=== PATIENT | female | born 1945 | race Caucasian/White ===

== ENCOUNTER 2018-12-30 07:12 | Day surgery (SDC) | payer OTHER ==
--- NOTE | 2018-12-29 07:35 | EKG ---
Test Date: 2018-12-28 Test Time: 15:35:47 [employer] Pharmacy Technician: DIAMOND MEASUREMENT RESULTS: Intervals: Rate: 60 ND: 182 QRSD: 82 QT: 396 QTc: 396 Randolph: P: 44 ND: 182 QRS: 4 T: 31 INTERPRETIVE STATEMENTS: Normal sinus rhythm Normal ECG Compared to ECG 03/03/1999 12:06:00 No significant changes Electronically Signed On 12-29-18 07:34:57 CDT by Cheo Herrera
[2018-12-30] MEDS ORDERED: Ringers Lactate 1,000 ML IV ONE (08:03)
[2018-12-30] MEDS ORDERED: FENTANYL CITR 250 MCG/5 ML ONE (09:02)
[2018-12-30] MEDS ORDERED: dexAMETHasone 10 MG/ML VIAL ONE (09:02)
[2018-12-30] MEDS ORDERED: MIDAZOLAM HCL 2 MG/2 ML INJ ONE (09:02)
[2018-12-30] MEDS ORDERED: ROCURONIUM 50 MG/5 ML VIAL IV ONE (09:02)
[2018-12-30] MEDS ORDERED: PROPOFOL 200 MG/20 ML VIAL IV ONE (09:02)
[2018-12-30] MEDS ORDERED: LIDOCAINE 2% MPF 5 ML VIAL ONE (09:02)
[2018-12-30] MEDS: LIDOCAINE 1% W/EPI 1:100,000 MDV 20 ML VIAL ONE ×2 (09:25→09:49)
[2018-12-30] MEDS ORDERED: GLYCOPYRROLATE 0.2 MG/ML SYR ONE (09:45)
[2018-12-30] MEDS ORDERED: KETOROLAC 30 MG/ML INJ ONE (10:32)
--- NOTE | 2018-12-30 10:37 | P.BOP ---
Preoperative diagnosis: L parotid mass, AUS Postoperative diagnosis: same Primary procedure: partial parotidectomy without nerve dissection Diamond Merchant: KAYLAN CARR Estimated blood loss: <10ml Specimen: left parotid mass, suture and marking pen on deep aspect Anesthesia: General Complications: None Drain(s): ALIZA drain Fluids & blood products: crystalloid 600ml Transferred to: Recovery Room Condition: Good
[2018-12-30] MEDS ORDERED: NALOXONE HCL 2 MG/2 ML VIAL ONE (10:44)
[2018-12-30] MEDS ORDERED: NALOXONE 0.4 MG/ML VIAL ONE (10:46)
[2018-12-30] MEDS ORDERED: TRAMADOL HCL 50 MG TAB ONE (12:18)
[2018-12-30] MEDS ORDERED: ONDANSETRON 4 MG/2 ML VIAL ONE (12:19)
[2018-12-30] MEDS ORDERED: ONDANSETRON 4 MG/2 ML VIAL IV ONE (12:20)
[2018-12-30] MEDS ORDERED: TRAMADOL HCL 50 MG TAB PO ONE (12:25)
[2018-12-30 13:44] VITALS: O2SAT 100
[2018-12-30 13:53] VITALS: BP 151/62; TEMP 98.6
--- NOTE | 2018-12-31 01:46 | OP ---
Date of Procedure: 12/30/2018 Surgeon: Mya Armenta MD Visual Effects Artist: Sally Stewart. Preoperative Diagnosis: Left parotid lesion of uncertain behavior. Postoperative Diagnosis: Left parotid lesion of uncertain behavior. Procedure: Partial left parotidectomy without facial nerve dissection. Indication For Procedure: Ms. Jiménez is a 73-year-old who presented with a left parotid lesion that by palpation was approximately 1.5 cm. She had undergone a CT and an ultrasound, findings confirming a parotid lesion. A fine- needle aspiration biopsy was performed and showed a lesion with atypia of uncertain significance. The risks, benefits, and alternatives to the procedure were discussed with the patient who agreed to proceed. Description Of Procedure: The patient was brought to the operating room. She was placed under general anesthesia via oral endotracheal tube. The patient's head was turned toward the right for better exposure of the left neck. The planned incision site was injected with 1% lidocaine with epinephrine. The patient's face and neck were prepped with Betadine and draped in a sterile fashion. After careful consideration, decision was made to begin the procedure with a limited incision. The mass was located just inferior to the angle of the mandible with the thought process of the lesion being located inferior and posterior to the branches of the facial nerve. A 4 cm incision was made through the skin and subcutaneous tissues. The inferior-most aspect of the parotid was identified and dissected using Bovie electrocautery. The posterior aspect of the tail of the parotid was freed from surrounding tissue attachments using the Bovie electrocautery. Carefully palpating the mass, an anterior and superior incision was made into the parotid gland. The Bovie electrocautery was used to dissect and divide through the tissues, leaving a cuff of tissue around the palpable lesion. There were no identifiable branches of the facial nerve. During dissection, there was mild twitching of the platysmal muscle consistent with activation of a cervical branch of the facial nerve, which was likely due to transmission of the electrocautery through the tissues. The mass was removed and the deep aspect of the specimen was marked with ink and a suture and sent to Pathology in formalin. The area was thoroughly irrigated and no significant bleeding was noted. A 10-Green[place]ic round ALIZA drain was placed in the surgical site and withdrawn through the posterior skin and secured to the neck with nylon suture. The incision was then closed in a layered fashion using 4-0 Vicryl and 5-0 plain gut suture. The procedure was concluded. Complications: None. Blood Loss: Less than 10 mL. Disposition: The patient will be discharged home later today with the care of her family and return to Dr. Armenta for removal of drain on Wednesday. MATTY/DEVEN Voice ID: [id number] Report ID: [id number] MTDD
== END 2018-12-30 13:33 | disposition home or self-care (01) ==
LOC: OR 07:12
PROVIDERS: ATTEND Otolaryngology
PROC: 0CT90ZZ Resection of Left Parotid Gland, Open Approach (ICD-10-PCS; principal; 2018-12-30 08:45)
DX: D11.0 Benign neoplasm of parotid gland (principal); I10 Essential (primary) hypertension; E78.00 Pure hypercholesterolemia, unspecified; Z82.49 Family history of ischemic heart disease and other diseases of the circulatory system
CPT/HCPCS: 93005; 88307; 42415; J2704; J2250; J3010; J1100; J2405 ×2; 88305; J2310